=== PATIENT | female | born 1970 | race Hispanic/Latino ===

== ENCOUNTER 2017-02-07 11:58 | Outpatient (CLI) | payer BC ==
--- NOTE | 2017-02-07 15:18 | RAD ---
TWO VIEWS CHEST: Comparison: 12-05-14 History: Persistent cough. FINDINGS: Two views of the chest show normal sized cardiomediastinal silhouette. There is no evidence of conso lidation, mass, or pleural effusion. Minimal degenerative changes are seen in the spine. IMPRESSION: No evidence of acute cardiopulmonary disease. POS: [facility]
== END 2017-02-07 11:59 | disposition home or self-care (01) ==
LOC: BURRAD 11:58
PROVIDERS: ATTEND Family Medicine
DX: R05 Cough (principal)
CPT/HCPCS: 71020

== ENCOUNTER 2017-02-07 13:05 | Outpatient (CLI) | payer BC ==
[2017-02-07 15:32] LABS: #Basophils 0.1 thou/uL (0.0-0.2); #Eosinphils 0.5 thou/uL (0.0-0.7); #Lymphocytes 1.8 thou/uL (1.20-3.40); #Monocytes 0.7 thou/uL (0.11-0.59); %Basophils 1.2 % (0.0-1.0); %Eosinophils 8.7 % (0.0-10.0); %Lymphocytes 29.4 % (21.0-51.0); %Monocytes 11.3 % (0.0-10.0); %Neutrophils 49.4 % (42.0-75.0); Hemoglobin 11.1 g/dL (12.0-16.0); Mean Corpuscular HGB CONC 30.9 g/dL (32.0-36.0); Mean Corpuscular Hemoglobin 22.8 pg (27.0-31.0); Mean Corpuscular Volume 73.7 fl (81.0-99.0); Mean Platelet Volume 6.3 fL (7.4-10.4); Platelet Count 385 thou/uL (130-400); RBC Distribution Width 14.9 % (11.5-14.5); Red Blood Cell (RBC) Count 4.89 mill/uL (4.20-5.40)
[2017-02-07 20:53] LABS: MDiff Complete? YES; Microcytosis SLIGHT = 6-15 cells (100X) (0-5/hpf); PLT Morphology Comment Appears Adequate
== END 2017-02-07 13:06 | disposition home or self-care (01) ==
LOC: HPCALD 13:05
PROVIDERS: ATTEND Family Medicine
DX: R05 Cough (principal)
CPT/HCPCS: 36415; 85025

== ENCOUNTER 2017-03-12 20:12 | Emergency (ER) | payer BC | END 2017-03-12 23:15 | disposition home or self-care (01) | LOC: BURERS 20:12 | DX: L73.9 Follicular disorder, unspecified (principal); I10 Essential (primary) hypertension; Z79.899 Other long term (current) drug therapy | CPT/HCPCS: 99283 ==

== ENCOUNTER 2017-05-16 21:09 | Emergency (ER) | payer BC ==
[2017-05-16] MEDS ORDERED: Ibuprofen 200 MG TAB ONE (21:37)
== END 2017-05-16 21:35 | disposition home or self-care (01) ==
LOC: BURERS 21:09
DX: S16.1XXA Strain of muscle, fascia and tendon at neck level, initial encounter (principal); S29.012A Strain of muscle and tendon of back wall of thorax, initial encounter; S40.011A Contusion of right shoulder, initial encounter; I10 Essential (primary) hypertension; Z79.899 Other long term (current) drug therapy; Y04.0XXA Assault by unarmed brawl or fight, initial encounter
CPT/HCPCS: 99283

== ENCOUNTER 2017-07-14 10:56 | Outpatient (CLI) | payer BC ==
[2017-07-14 11:21] LABS: #Basophils 0.1 thou/uL (0.0-0.2); #Eosinphils 0.2 thou/uL (0.0-0.7); #Lymphocytes 1.5 thou/uL (1.20-3.40); #Monocytes 0.5 thou/uL (0.11-0.59); #Neutrophils 4.5 thou/uL (1.40-6.50); %Basophils 1.3 % (0.0-1.0); %Eosinophils 3.6 % (0.0-10.0); %Lymphocytes 22.1 % (21.0-51.0); %Monocytes 6.7 % (0.0-10.0); %Neutrophils 66.3 % (42.0-75.0); Hemoglobin 13.1 g/dL (12.0-16.0); Mean Corpuscular HGB CONC 30.9 g/dL (32.0-36.0); Mean Corpuscular Hemoglobin 26.3 pg (27.0-31.0); Mean Platelet Volume 7.3 fL (7.4-10.4); Platelet Count 338 thou/uL (130-400); RBC Distribution Width 14.3 % (11.5-14.5); Red Blood Cell (RBC) Count 4.98 mill/uL (4.20-5.40); White Blood Cell (WBC) Count 6.8 thou/uL (4.8-10.8)
[2017-07-14 11:32] LABS: ALT (SGPT) 15 U/L (8-55); AST (SGOT) 12 U/L (5-34); Albumin 3.8 g/dL (3.5-5.0); Alkaline Phosphatase 50 U/L (40-150); Anion Gap 14 mmol/L (10-20); BUN (Urea Nitrogen) 8 mg/dL (7.0-18.7); Bilirubin, Total 0.2 mg/dL (0.2-1.2); Calc. Creatinine Clearance 0 mL/min (70-130); Calcium 8.6 mg/dL (7.8-10.44); Carbon Dioxide 27 mmol/L (22-29); Cardiac Risk 4.9 (Less than 4.5); Chloride 105 mmol/L (98-107); Cholesterol 182 mg/dl (< 200 Desired); Estimated GFR-MDRD Greater than 90; Globulin 3.1 g/dL (2.4-3.5); Glucose 96 mg/dL (70-105); HDL Cholesterol 37 mg/dL (>60 Neg Risk); LDL Cholesterol, Calculated 107 mg/dL; Potassium 3.8 mmol/L (3.5-5.1); Protein, Total 6.9 g/dL (6.0-8.3); Sodium 142 mmol/L (136-145); Triglycerides 189 mg/dL (Less than 150)
== END 2017-07-14 10:57 | disposition home or self-care (01) ==
LOC: HPCALD 10:56
PROVIDERS: ATTEND Physician Assistant
DX: D50.9 Iron deficiency anemia, unspecified (principal); I10 Essential (primary) hypertension
CPT/HCPCS: 36415; 80053; 80061; 84443; 85025

== ENCOUNTER 2017-08-30 18:25 | Emergency (ER) | payer BC | END 2017-08-30 18:46 | disposition home or self-care (01) | LOC: BURERS 18:25 | DX: M70.911 Unspecified soft tissue disorder related to use, overuse and pressure, right shoulder (principal); I10 Essential (primary) hypertension; Z79.899 Other long term (current) drug therapy | CPT/HCPCS: 99283 ==

== ENCOUNTER 2017-09-20 16:16 | Outpatient (CLI) | payer BC ==
--- NOTE | 2017-09-20 22:31 | RAD ---
RIGHT SHOULDER THREE VIEWS 09/20/17 No fracture, dislocation, or AC joint widening was seen. The visible adjacent ribs appear clear. Some of the cortex of the distal clavicular shaft is slightly indistinct. Sometimes this can signify a stress injury and other times it is the residual from old trauma. If there is tenderness to the d istal clavicle about an inch or two short of the AC joint, Then a followup study in a week or two co uld be useful. If there is no real pain here, I would take it as an old finding. IMPRESSION: Probably no acute findings but see comments about distal clavicle. POS: [facility]
== END 2017-09-20 16:17 | disposition home or self-care (01) ==
LOC: BURRAD 16:16
PROVIDERS: ATTEND Physician Assistant
DX: M25.511 Pain in right shoulder (principal)

== ENCOUNTER 2017-11-05 11:12 | Emergency (ER) | payer BC | END 2017-11-05 11:28 | disposition home or self-care (01) | LOC: BURERS 11:12 | DX: J11.1 Influenza due to unidentified influenza virus with other respiratory manifestations (principal); I10 Essential (primary) hypertension; Z79.899 Other long term (current) drug therapy | CPT/HCPCS: 99283 ==

== ENCOUNTER 2017-11-09 17:46 | Emergency (ER) | payer BC ==
[2017-11-09] MEDS ORDERED: predniSONE 20 MG TAB ONE (18:57)
--- NOTE | 2017-11-09 23:32 | RAD ---
CHEST TWO VIEWS 11/09/17 Comparison is made with the prior study of 02/07/17. The heart is normal in size and the lungs are clear. There is no sign of pneumonia or pleural effusio n. The mediastinum appears normal and the trachea is midline. IMPRESSION: No acute findings. POS: [facility]
== END 2017-11-09 19:54 | disposition home or self-care (01) ==
LOC: BURERS 17:46
DX: J40 Bronchitis, not specified as acute or chronic (principal); I10 Essential (primary) hypertension; Z79.899 Other long term (current) drug therapy
CPT/HCPCS: 71020; 94640; J7506; J7620

== ENCOUNTER 2017-12-26 13:33 | Emergency (ER) | payer BC | END 2017-12-26 13:49 | disposition home or self-care (01) | LOC: BURERS 13:33 | DX: R05 Cough (principal); I10 Essential (primary) hypertension | CPT/HCPCS: 99283 ==

== ENCOUNTER 2022-09-24 19:54 | Emergency (ER) | payer SELFPAY ==
[2022-09-24] MEDS ORDERED: predniSONE 20 MG TAB ONE (22:48)
[2022-09-24] MEDS ORDERED: Benzonatate 100 MG CAP ONE (22:48)
== END 2022-09-24 23:21 | disposition home or self-care (01) ==
LOC: BURERS 19:54
DX: J06.9 Acute upper respiratory infection, unspecified (principal); J45.909 Unspecified asthma, uncomplicated; I10 Essential (primary) hypertension
CPT/HCPCS: 71045; J7512; J7620

== ENCOUNTER 2023-05-04 11:05 | Emergency (ER) | payer SELFPAY ==
[2023-05-04] MEDS ORDERED: Lidocaine 1%/Epinephrine 1:100K 10 ML VIAL ONE (11:20)
== END 2023-05-04 11:55 | disposition home or self-care (01) ==
LOC: BURERS 11:05
DX: N76.4 Abscess of vulva (principal); I10 Essential (primary) hypertension; F17.210 Nicotine dependence, cigarettes, uncomplicated
CPT/HCPCS: 56405